=== PATIENT | male | born 1975 | race Caucasian/White ===

== ENCOUNTER → 2018-05-23 08:04 | Outpatient (CLI) | payer OTHER, MEDICAID, SELFPAY ==
[2018-05-23 09:51] LABS: Alanine Aminotransferase 25 IU/L (21-72); Albumin 4.2 g/dL (3.5-5.0); Albumin Globulin Ratio 1.4 (1.0-2.8); Alkaline Phosphatase 93 U/L (38-126); Aspartate Aminotransferase 22 IU/L (17-59); Bilirubin Total 0.9 mg/dL (0.2-1.3); Blood Urea Nitrogen 17 mg/dL (9-20); Calcium 9.3 mg/dL (8.4-10.2); Carbon Dioxide 29 mmol/L (22-32); Chloride 102 mmol/L (98-107); Estimated Glomerular Filt Rate > 60.0 mL/min (>60); Globulin 2.9 g/dL (1.7-4.1); Glucose 98 mg/dL (70-100); HEMOLYSIS < 15 (0-50); Potassium 4.3 mmol/L (3.4-5.1); Sodium 140 mmol/L (137-145); Total Protein 7.1 g/dL (6.3-8.2)
[2018-05-23 09:53] LABS: HEMOLYSIS < 15 (0-50); Iron 117 ug/dL (49-181)
[2018-05-23 09:57] LABS: Luteinizing Hormone < 0.22 mIU/mL; Prolactin 13.1 ng/mL (3.7-17.9)
[2018-05-23 10:05] LABS: Percent Iron Saturation 39 % (20-50); Total Iron Binding Capacity 298 ug/dL (261-462); Transferrin 239 mg/dL (206-381)
[2018-05-23 10:10] LABS: Cortisol AM (Before 10AM) 14.2 ug/dL (4.46-22.7)
[2018-05-23 10:16] LABS: Sodium Urine Random 139 mmol/L (30-90)
[2018-05-24 16:04] LABS: Osmolality, Serum 293 mosm/kg (260-310)
[2018-05-25 15:18] LABS: Chromogranin A, Serum 60 ng/mL (25-140)
== END ==
PROVIDERS: PCP Physician Assistant; Visit Provider Internal Medicine
DX: R35.8 Other polyuria (principal)
CPT/HCPCS: 36415; 80053; 82533; 83002; 83540; 83550; 83930; 83935; 84146; 84300; 84403; 86316

== ENCOUNTER → 2018-06-07 08:37 | Outpatient (CLI) | payer OTHER, MEDICAID, SELFPAY ==
[2018-06-07 12:20] LABS: Cortisol AM (Before 10AM) 10.7 ug/dL (4.46-22.7)
== END ==
PROVIDERS: PCP Student in an Organized Health Care Education/Training Program; Visit Provider Student in an Organized Health Care Education/Training Program
DX: E29.1 Testicular hypofunction (principal)
CPT/HCPCS: 36415; 82533

== ENCOUNTER → 2018-08-25 07:57 | Outpatient (CLI) | payer OTHER, MEDICAID, SELFPAY ==
[2018-08-25 09:14] LABS: Add Manual Diff / Slide Review NO; Eosinophils Percent Auto 6.2 % (2-4); Hematocrit 46.7 % (41-53); Hemoglobin 16.2 g/dL (13.5-17.5); Lymphocytes Percent Auto 29.5 % (25-40); Mean Corpuscular HGB Conc 34.8 % (30-36); Monocytes Percent Auto 10.4 % (3-14); Neutrophils Absolute Auto 2900 /uL (3000-5900); Neutrophils Percent Auto 52.9 % (50-75); Platelet Count 275 X10^3/uL (150-400); Red Blood Cell Count 5.07 X10^6/uL (4.5-5.9); Red Cell Distribution Width 13.1 % (11.6-14.8); White Blood Cell Count 5.5 X10^3/uL (4.5-11.0)
[2018-08-25 09:57] LABS: Prostate Specific Antigen Scrn 1.35 ng/mL (0.1-4.0)
[2018-08-25 10:13] LABS: Free T4, Direct Thyroxine 0.98 ng/dL (0.78-2.19)
[2018-08-25 10:27] LABS: Thyroid Stimulating Hormone 2.01 uIU/mL (0.47-4.68)
[2018-08-27 19:16] LABS: Testosterone, Free 1.44 ng/dL (0.87-5.47)
[2018-08-28 08:14] LABS: Triiodothyronine T3 Total 81 ng/dL (76-181)
== END ==
PROVIDERS: Family Provider Student in an Organized Health Care Education/Training Program; PCP Student in an Organized Health Care Education/Training Program; Visit Provider Internal Medicine
DX: E29.1 Testicular hypofunction (principal); R00.2 Palpitations; Z13.9 Encounter for screening, unspecified
CPT/HCPCS: 36415; 84402; 84403; 84439; 84443; 84480; 85025; G0103

== ENCOUNTER 2021-05-17 19:45 | Emergency (ER) | payer MEDICARE, SELFPAY ==
[2021-05-17 19:56] VITALS: BP 144/106; PULSE 125; RESP 19; TEMP 37.6; O2SAT 97; BMI 25.0
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
[2021-05-17 21:56] VITALS: BP 140/92; PULSE 95; RESP 16; O2SAT 96
== END 2021-05-17 21:58 | disposition home or self-care (01) ==
PROVIDERS: Emergency Provider Emergency Medicine; Family Provider Student in an Organized Health Care Education/Training Program
DX: S43.102A Unspecified dislocation of left acromioclavicular joint, initial encounter (principal); V86.35XA Unspecified occupant of 3- or 4- wheeled all-terrain vehicle (ATV) injured in traffic accident, initial encounter
CPT/HCPCS: 73000; 73030; 99281; 99283

== ENCOUNTER 2024-09-18 12:12 | Emergency (ER) | payer MEDICARE, SELFPAY ==
[2024-09-18] VITALS (10 sets, daily range): BP systolic 136–159; BP diastolic 83–107; PULSE 77–103; RESP 14–23; TEMP 36.9; O2SAT 96–99; BMI 26.6
--- NOTE | 2024-09-18 12:30 | ED_ITS ---
HPI - Nausea/Vomiting/Diarrhea General Chief complaint: Nausea/Vomiting/Diarrhea Stated complaint: disoriented, not eating hx of MS Time Seen by Provider: 09/18/24 12:30 Source: patient and other Mode of arrival: Family Vehicle History of Present Illness HPI Narrative: Patient is a 49-year-old male past medical history of anxiety, depression, comes into the ED from home for evaluation of. States that he has just been feeling off. States that he has been feeling a little bit weaker than normal, also been complaining of abdominal pain nausea vomiting diarrhea ongoing for the past 3 days. Not on any antibiotics. States that he has been compliant with all his other medications which include lithium. States that he is just having generalized body pains worsen his abdomen. No trauma no falls not on any blood thinners no recent illness sick contacts no recent travel Related Data Previous Rx's Medication Instructions Recorded testosterone enanthate 200 mg/mL 200 mg IM QWEEK #4 vials 08/14/17 intramuscular oil cholecalciferol (vitamin D3) 1,250 50,000 unit PO QWEEK #4 caps 12/28/17 mcg (50,000 unit) capsule cyclobenzaprine 10 mg tablet 10 mg PO Q DAY PRN #30 tabs 01/03/18 clindamycin phosphate 1 % topical 1 % topical QDAY #60 mL 01/17/18 solution gabapentin 300 mg capsule 300 mg PO BID #60 caps 01/17/18 (Neurontin) minocycline 100 mg capsule 100 mg PO QDAY #30 caps 01/17/18 (Minocin) benzonatate 100 mg capsule 100 mg PO HSP PRN #30 caps 01/23/18 (Tessalon Perles) amoxicillin 875 mg-potassium 1 tab PO BID 5 days #10 tabs 09/18/24 clavulanate 125 mg tablet cyclobenzaprine 10 mg tablet 10 mg PO BEDTIME PRN muscle spasm 09/18/24 5 days #5 tabs ondansetron 4 mg disintegrating 4 mg PO Q8H PRN nausea and 09/18/24 tablet vomiting 5 days #15 tabs Allergies Allergy/AdvReac Type Severity Reaction Status Date / Time No Known Allergies Allergy Uncoded 09/18/24 12:23 Review of Systems Review of Systems Narrative: General: Positive generalized weakness Denies fever, chills, weight loss HEENT: Denies headache, eye drainage, eye irritation, head trauma, sore throat, voice change Cardiovascular: Denies any chest pain, palpitations, shortness of breath, tachycardia Respiratory: Denies any shortness of breath, cough, wheeze, stridor GI/: Positive abdominal pain, nausea, vomiting, diarrhea, denies bright red blood per rectum, melanotic stools, urinary frequency, urinary retention, dysuria, hematuria MSK: Denies any joint pain, muscle pains, swelling Skin: Denies any rashes, lesions, discoloration Neuro: Denies any headache, lightheadedness, dizziness, fainting, weakness Psych: Denies SI/HI Patient History Surgical History History of third molar tooth extraction Family History Sister Age: 43 Substance abuse Social History Smoking Status: Former smoker Smoking Status: Former smoker alcohol intake frequency: 0-2 drinks per day Substance Use Type: marijuana Exam Narrative Exam Narrative: General: Cooperative, comfortable, well-developed, not in acute distress HEENT: Normocephalic, atraumatic, PERRLA, normal sclera, eyelids normal, Neck: Active full range of motion, atraumatic Chest: Normal to inspection, negative crepitus, no overlying erythema ecchymosis Respiratory: Normal respiratory effort, not in acute respiratory distress, clear to auscultation bilaterally negative cough, wheeze, tachypnea, rhonchi, rales Cardiology: Regular rate rhythm negative gallop, murmur, rubs GI/: Normal to inspection, soft, nonrigid, no tenderness to palpation, exam deferred MSK: Full range of active range of motion of all 4 extremities, atraumatic Skin: No rashes lesions noted Neuro: Alert awake oriented x3, moves all 4 extremities spontaneously, cranial nerves intact, able to answer all questions appropriately follows commands appropriately Psych: Cooperative, negative suicidal or homicidal ideations Initial Vital Signs Initial Vital Signs: Vital Signs Pulse Rate 103 H 09/18/24 12:19 Respiratory Rate 16 09/18/24 12:19 Blood Pressure 159/107 H 09/18/24 12:19 Pulse Oximetry 99 09/18/24 12:19 Course Orders Ordered: ED Orders 09/18/24 12:25 Comprehensive Metabolic Panel Stat Lactate (Lactic Acid) Stat Lipase Stat [place] Stat MAG [Magnesium] Stat Troponin & CK Cardiac Panel Stat 09/18/24 12:28 Complete Blood Count AUTO DIFF Stat EKG-12 Lead Stat 09/18/24 12:35 CT abdomen pelvis w con Stat EKG-12 Lead Stat 09/18/24 12:55 Covid-19 + FLU A/B + RSV - PCR Stat 09/18/24 15:00 Urine Microscopic Stat Ondansetron HCl (Ondansetron 4 Mg/2 Ml Inj) 4 mg IV NOW PRN PRN Reason: Nausea And Vomiting Last Admin: 09/18/24 12:52 Dose: 4 mg Documented By: RHONDA Ondansetron HCl (Ondansetron 4 Mg Odt) 4 mg PO NOW PRN PRN Reason: Nausea And Vomiting Discontinued Medications Amoxicillin/Clavulanate Potassium (Amoxicillin/Clav 875/125 Mg) 1 tab PO NOW ONE Stop: 09/18/24 15:39 Sodium Chloride (Normal Saline 0.9%) 1,000 mls @ 500 mls/hr IV BOLUS ONE Stop: 09/18/24 14:34 Last Infusion: 09/18/24 15:08 Dose: Infused Documented By: Admin: 09/18/24 12:51 Dose: 500 mls/hr Documented By: RHONDA Ketorolac Tromethamine (Ketorolac 30 Mg/Ml Vial) 15 mg IV NOW ONE Stop: 09/18/24 12:36 Last Admin: 09/18/24 12:52 Dose: 15 mg Documented By: RHONDA Morphine Sulfate (Morphine 2 Mg/Ml Inj) 2 mg IV NOW ONE Stop: 09/18/24 14:02 Last Admin: 09/18/24 14:08 Dose: 2 mg Documented By: RHONDA Vital Signs Vital signs: Vital Signs - 8 hr 09/18/24 12:19 09/18/24 12:19 09/18/24 12:24 Temperature 98.5 F Pulse Rate 103 H 101 H Respiratory Rate 16 18 Blood Pressure 159/107 H 159/107 H Pulse Oximetry 99 99 Oxygen Delivery Method Room Air 09/18/24 12:30 09/18/24 12:30 09/18/24 13:00 Temperature Pulse Rate 86 77 Respiratory Rate 14 18 Blood Pressure 145/93 H Pulse Oximetry 96 97 Oxygen Delivery Method 09/18/24 13:00 09/18/24 13:18 09/18/24 13:18 Temperature Pulse Rate 89 Respiratory Rate 15 Blood Pressure 150/100 H 146/88 H Pulse Oximetry 98 Oxygen Delivery Method 09/18/24 13:30 09/18/24 14:00 09/18/24 14:00 Temperature Pulse Rate 79 Respiratory Rate 19 Blood Pressure 137/83 136/90 Pulse Oximetry 98 Oxygen Delivery Method 09/18/24 14:30 09/18/24 14:30 09/18/24 15:00 Temperature Pulse Rate 83 79 Respiratory Rate 23 22 Blood Pressure 136/92 H Pulse Oximetry 98 96 Oxygen Delivery Method 09/18/24 15:00 09/18/24 15:30 09/18/24 15:30 Temperature Pulse Rate 84 Respiratory Rate 15 Blood Pressure 136/92 H 145/98 H Pulse Oximetry 98 Oxygen Delivery Method MDM - Nausea/Vomiting/Diarrhea Differential Diagnosis Differential diagnosis: Likely gastroenteritis, dehydration and other (Urinary tract infection, electrolyte abnormality) Lab Data 09/18/24 12:28 09/18/24 12:25 Labs: Lab Results 09/18/24 09/18/24 09/18/24 Range/Units 12:25 12:28 12:55 WBC 14.2 H (4.5-11.0) X10^3/uL RBC 5.24 (4.5-5.9) X10^6/uL Hgb 16.8 (13.5-17.5) g/dL Hct 49.8 (41-53) % MCV 94.9 (80-100) fL MCH 32.0 (26-34) PG MCHC 33.7 (30-36) % RDW 12.6 (11.6-14.8) % Plt Count 435 H (150-400) X10^3/uL Neut % (Auto) 83.2 H (50-75) % Lymph % (Auto) 9.5 L (25-40) % Harvey % (Auto) 5.4 (3-14) % Eos % (Auto) 1.2 L (2-4) % Baso % (Auto) 0.7 (0-2) % Neut # (Auto) 71937 H (1615-3163) /uL Lymph # (Auto) 1400 (5458-4214) /uL Harvey # (Auto) 800 (0-900) /uL Eos # (Auto) 200 (0-450) /uL Baso # (Auto) 100 (0-100) /uL Sodium 135 L (137-145) mmol/L Potassium 4.1 (3.4-5.1) mmol/L Chloride 103 (98-107) mmol/L Carbon Dioxide 22 (22-32) mmol/L BUN 15 (9-20) mg/dL Creatinine 1.20 (0.66-1.25) mg/dL Estimated GFR > 60 (>60) mL/min BUN/Creatinine Ratio 12.5 (6-22) Glucose 136 H (70-100) mg/dL Lactate 1.5 (0.7-2.1) mmol/L Calcium 9.9 (8.4-10.2) mg/dL Magnesium 2.2 (1.6-2.3) mg/dL Total Bilirubin 0.9 (0.2-1.3) mg/dL AST 31 (17-59) IU/L ALT 25 (<50) IU/L Alkaline Phosphatase 125 (38-126) U/L Total Creatine Kinase 86 (55-170) U/L Troponin I < 0.012 (0.01-0.034) ng/mL Total Protein 8.4 H (6.3-8.2) g/dL Albumin 5.0 (3.5-5.0) g/dL Globulin 3.4 (1.7-4.1) g/dL Albumin/Globulin Ratio 1.5 (1.0-2.8) Lipase 95 (23-300) U/L Urine RBC (0-5/HPF) Urine WBC (0-5/HPF) Ur Squamous Epith Cells (0-5/HPF) Urine Bacteria (None) Ur Culture Indicated? Vol Urine Centrifuged [place] 0.8 (0.6-1.2) mmol/L SARS-CoV-2 (PCR) Negative (Negative) Influenza A (RT-PCR) Flu a negative (NEGATIVE) Influenza B (RT-PCR) Flu b negative (NEGATIVE) RSV (PCR) Negative (Negative) 09/18/24 Range/Units 15:00 WBC (4.5-11.0) X10^3/uL RBC (4.5-5.9) X10^6/uL Hgb (13.5-17.5) g/dL Hct (41-53) % MCV (80-100) fL MCH (26-34) PG MCHC (30-36) % RDW (11.6-14.8) % Plt Count (150-400) X10^3/uL Neut % (Auto) (50-75) % Lymph % (Auto) (25-40) % Harvey % (Auto) (3-14) % Eos % (Auto) (2-4) % Baso % (Auto) (0-2) % Neut # (Auto) (6135-4148) /uL Lymph # (Auto) (9044-4850) /uL Harvey # (Auto) (0-900) /uL Eos # (Auto) (0-450) /uL Baso # (Auto) (0-100) /uL Sodium (137-145) mmol/L Potassium (3.4-5.1) mmol/L Chloride (98-107) mmol/L Carbon Dioxide (22-32) mmol/L BUN (9-20) mg/dL Creatinine (0.66-1.25) mg/dL Estimated GFR (>60) mL/min BUN/Creatinine Ratio (6-22) Glucose (70-100) mg/dL Lactate (0.7-2.1) mmol/L Calcium (8.4-10.2) mg/dL Magnesium (1.6-2.3) mg/dL Total Bilirubin (0.2-1.3) mg/dL AST (17-59) IU/L ALT (<50) IU/L Alkaline Phosphatase (38-126) U/L Total Creatine Kinase (55-170) U/L Troponin I (0.01-0.034) ng/mL Total Protein (6.3-8.2) g/dL Albumin (3.5-5.0) g/dL Globulin (1.7-4.1) g/dL Albumin/Globulin Ratio (1.0-2.8) Lipase (23-300) U/L Urine RBC None seen (0-5/HPF) Urine WBC 0-1/hpf (0-5/HPF) Ur Squamous Epith Cells 0-1 /hpf (0-5/HPF) Urine Bacteria Occasional (0-1) (None) Ur Culture Indicated? Cult not indicated Vol Urine Centrifuged 10ml (spun) [place] (0.6-1.2) mmol/L SARS-CoV-2 (PCR) (Negative) Influenza A (RT-PCR) (NEGATIVE) Influenza B (RT-PCR) (NEGATIVE) RSV (PCR) (Negative) Urine Dip Bedside Urine Glucose Negative Bedside Urine Bilirubin - Negative Bedside Urine Ketone - Negative Urine Specific Clements 1.010 Bedside Urine Occult Blood - Negative Bedside Urine pH 6.0 Bedside Urine Protein - Negative Bedside Urine Urobilinogen - Negative Bedside Urine Nitrite - Negative Bedside Urine Leukocytes +/- [address] scan - abdomen/pelvis: Radiologist's Impression: [address] [address] [address] Scan Report Signed Patient: Paulino Green MR#: [id number] : 1975 Acct:[id number] Age/Sex: 49 / M Date of Service: 09/18/24 Loc: ED Accession Number: [id number] Procedure: CT abdomen pelvis w con Ordering Provider: Dilan Krueger D.O. PROCEDURE: CT ABDOMEN PELVIS W CON INDICATIONS: abd pain, weakness TECHNIQUE: After the administration of intravenous contrast, axial sections acquired from the lung bases to the pubic symphysis. Coronal and sagittal reformats were performed. For radiation dose reduction, the following was used: automated exposure control, adjustment of mA and/or kV according to patient size. COMPARISON: None. FINDINGS: Image quality: Diagnostic. Lower Chest: No significant findings. ABDOMEN: Liver: No solid mass. Gallbladder: No radiopaque gallstones or wall thickening. Biliary ducts: No biliary dilation. Pancreas: No ductal dilation. Spleen: Size is within normal limits. Adrenal Glands: No adrenal nodules. Kidneys and Ureters: No hydronephrosis. No solid mass. No complex renal cystic lesion which requires follow up. Stomach and Bowel: The cecum is high-riding. There are areas of moderate mucosal thickening involving the ascending colon, the distal transverse colon, and the descending colon. There is potential involvement of the sigmoid colon. There is moderate thickening seen involving the rectum. Minimal surrounding inflammatory change can be seen. No dilated loops of small bowel are seen. Peritoneum: No peritoneal abscess is seen. No abnormal intraperitoneal fluid. No free air. Ventral Wall: No significant ventral hernia. Abdominal Nodes: No retroperitoneal or mesenteric adenopathy by size criteria. Vessels: Aorta and inferior vena cava are normal in size. PELVIS: Pelvic Organs: Unremarkable. Bladder: There is moderate generalized bladder wall thickening seen. Pelvic Nodes: No enlarged lymph nodes. Miscellaneous: No inguinal hernias are seen. Bones: No aggressive osseous abnormality. IMPRESSION: Moderate scattered areas of colonic wall thickening can be seen. Please correlate with potential infectious and inflammatory causes of colitis. No findings of perforation or abscess can be seen. Moderate circumferential bladder wall thickening can be seen. Please correlate with bladder outlet obstruction in a patient of this age. ECG Data Attestation: I personally reviewed and interpreted this ECG as follows: Interpretation: EKG interpreted by ED physician sinus at 79 beats per minute QTC [address] changes no STEMI MDM Narrative Medical decision making narrative: Patient is a 49-year-old male history of anxiety, depression, presents for diffuse weakness abdominal pain nausea vomiting diarrhea for the past 3 days. Also complaining of diffuse body pains but worse in his abdomen. Workup performed here in the emergency department with mild leukocytosis and CT scan showing colitis, given patient complaining of abdominal pain will give antibiotics, urine not consistent with acute urinary tract infection. Patient with trop negative, EKG nonischemic, lab work otherwise unremarkable. Patient will be sent home with analgesics, antibiotics and instructed to follow up with primary care in an outpatient setting, strict return precautions were given he verbalized understanding of this and agrees to being discharged home with outpatient follow up Discharge Plan Departure Patient Disposition: Home Clinical Impression: Colitis Activity Restrictions/Additional Instructions: Please follow-up with your primary care doctor Please read the discharge instructions sheet carefully and bring all papers to all doctor follow-up visits, as it may contain information that your doctor may want to see. Disease processes change and evolve, if your symptoms worsen or if you develop any new symptoms that are concerning to you please return for evaluation. Your evaluation today does not show any evidence of any life- threatening/serious illnesses requiring admission to the hospital or surgery. Please follow-up with your doctor for re-evaluation in approximately 1 day. Seek immediate medical attention for any worrisome symptoms. Prescriptions: New amoxicillin-pot clavulanate 875-125 mg tablet 1 tab PO BID 5 Days Qty: 10 0RF ondansetron 4 mg tablet,disintegrating 4 mg PO Q8H PRN (Reason: nausea and vomiting) 5 Days Qty: 15 0RF cyclobenzaprine 10 mg tablet 10 mg PO BEDTIME PRN (Reason: muscle spasm) 5 Days Qty: 5 0RF No Action testosterone enanthate 200 MG/1 ML oil 200 mg IM QWEEK Qty: 4 5RF cholecalciferol (vitamin D3) 50,000 UNIT capsule 50,000 unit PO QWEEK Qty: 4 11RF cyclobenzaprine 10 MG tablet 10 mg PO Q DAY PRNQty: 30 3RF minocycline [Minocin] 100 MG capsule 100 mg PO QDAY Qty: 30 5RF clindamycin phosphate 1 % solution 1 % Topical QDAY Qty: 60 1RF gabapentin [Neurontin] 300 MG capsule 300 mg PO BID Qty: 60 3RF benzonatate [Tessalon Perles] 100 MG capsule 100 mg PO HSP PRNQty: 30 0RF Stand Alone Forms: Patient Portal/API
--- NOTE | 2024-09-18 12:35 | DI.CT.S_ITS ---
PROCEDURE: CT ABDOMEN PELVIS W CON INDICATIONS: abd pain, weakness TECHNIQUE: After the administration of intravenous contrast, axial sections acquired from the lung bases to the pubic symphysis. Coronal and sagittal reformats were performed. For radiation dose reduction, the following was used: automated exposure control, adjustment of mA and/or kV according to patient size. COMPARISON: None. FINDINGS: Image quality: Diagnostic. Lower Chest: No significant findings. ABDOMEN: Liver: No solid mass. Gallbladder: No radiopaque gallstones or wall thickening. Biliary ducts: No biliary dilation. Pancreas: No ductal dilation. Spleen: Size is within normal limits. Adrenal Glands: No adrenal nodules. Kidneys and Ureters: No hydronephrosis. No solid mass. No complex renal cystic lesion which requires follow up. Stomach and Bowel: The cecum is high-riding. There are areas of moderate mucosal thickening involving the ascending colon, the distal transverse colon, and the descending colon. There is potential involvement of the sigmoid colon. There is moderate thickening seen involving the rectum. Minimal surrounding inflammatory change can be seen. No dilated loops of small bowel are seen. Peritoneum: No peritoneal abscess is seen. No abnormal intraperitoneal fluid. No free air. Ventral Wall: No significant ventral hernia. Abdominal Nodes: No retroperitoneal or mesenteric adenopathy by size criteria. Vessels: Aorta and inferior vena cava are normal in size. PELVIS: Pelvic Organs: Unremarkable. Bladder: There is moderate generalized bladder wall thickening seen. Pelvic Nodes: No enlarged lymph nodes. Miscellaneous: No inguinal hernias are seen. Bones: No aggressive osseous abnormality. IMPRESSION: Moderate scattered areas of colonic wall thickening can be seen. Please correlate with potential infectious and inflammatory causes of colitis. No findings of perforation or abscess can be seen. Moderate circumferential bladder wall thickening can be seen. Please correlate with bladder outlet obstruction in a patient of this age. Dictated by: Karl Palacio M.D. on 09/18/2024 at 12:31 Approved by: Karl Palacio M.D. on 09/18/2024 at 12:34
[2024-09-18 12:37] LABS: Add Manual Diff / Slide Review NO; Basophils Absolute Auto 100 /uL (0-100); Basophils Percent Auto 0.7 % (0-2); Eosinophils Absolute Auto 200 /uL (0-450); Eosinophils Percent Auto 1.2 % (2-4); Hematocrit 49.8 % (41-53); Hemoglobin 16.8 g/dL (13.5-17.5); Lymphocytes Absolute Auto 1400 /uL (1100-4500); Lymphocytes Percent Auto 9.5 % (25-40); Mean Corpuscular HGB Conc 33.7 % (30-36); Mean Corpuscular Volume 94.9 fL (80-100); Monocytes Absolute Auto 800 /uL (0-900); Monocytes Percent Auto 5.4 % (3-14); Neutrophils Absolute Auto 11800 /uL (1500-7000); Neutrophils Percent Auto 83.2 % (50-75); Platelet Count 435 X10^3/uL (150-400); Red Blood Cell Count 5.24 X10^6/uL (4.5-5.9); Red Cell Distribution Width 12.6 % (11.6-14.8); White Blood Cell Count 14.2 X10^3/uL (4.5-11.0)
--- NOTE | 2024-09-18 12:47 | EKG_ITS ---
[address] [address] Test Date: 2024-09-18 Pat Name: Paulino Green Department: [facility] Room: Gender: Male [employer]: JEREMY : 1975 Requested By: Order Number: [id number] Reading MD: Erick Herring Measurements Intervals [place] Rate: 79 P: 56 NC: 152 QRS: 18 QRSD: 118 T: 34 QT: 384 QTc: 440 Interpretive Statements Normal sinus rhythm Nonspecific intraventricular conduction delay Electronically Signed On 09-18-2024 14:28:05 PDT by Erick Herring
[2024-09-18] MEDS: SODIUM CHLORIDE 0.9% 1,000 ML 500 ML IV (12:51)
[2024-09-18] MEDS: ONDANSETRON 4 MG/2 ML INJ IV (12:52)
[2024-09-18] MEDS: KETOROLAC 30 MG/ML VIAL 15 MG IV (12:52)
[2024-09-18 13:01] LABS: Alanine Aminotransferase 25 IU/L (<50); Albumin Globulin Ratio 1.5 (1.0-2.8); Alkaline Phosphatase 125 U/L (38-126); Aspartate Aminotransferase 31 IU/L (17-59); BUN Creatinine Ratio 12.5 (6-22); Bilirubin Total 0.9 mg/dL (0.2-1.3); Blood Urea Nitrogen 15 mg/dL (9-20); Calcium 9.9 mg/dL (8.4-10.2); Carbon Dioxide 22 mmol/L (22-32); Chloride 103 mmol/L (98-107); Estimated Glomerular Filt Rate > 60 mL/min (>60); Globulin 3.4 g/dL (1.7-4.1); Glucose 136 mg/dL (70-100); HEMOLYSIS < 15 (0-50); Lipase 95 U/L (23-300); Potassium 4.1 mmol/L (3.4-5.1); Sodium 135 mmol/L (137-145); Total Protein 8.4 g/dL (6.3-8.2)
[2024-09-18 13:02] LABS: Creatine Kinase 86 U/L (55-170); Lactate (Lactic Acid) 1.5 mmol/L (0.7-2.1); Magnesium 2.2 mg/dL (1.6-2.3)
[2024-09-18 13:04] LABS: Lithium 0.8 mmol/L (0.6-1.2)
[2024-09-18 13:13] LABS: Troponin I < 0.012 ng/mL (0.01-0.034)
[2024-09-18 13:34] LABS: Influenza A - CEPHEID Flu A NEGATIVE (NEGATIVE); Influenza B - CEPHEID Flu B NEGATIVE (NEGATIVE); Respiratory Syncytial Virus Negative (Negative)
[2024-09-18 13:38] LABS: COVID-19 CEPHEID 4-PLEX PCR Negative (Negative)
[2024-09-18] MEDS: MORPHINE 2 MG/ML INJ IV (14:08)
[2024-09-18 15:22] LABS: Bacteria Urine Occasional (0-1); Culture Indicated Urine Cult Not Indicated; RBC Urine None Seen (0-5/HPF); Squamous Epithelial Cell Urine 0-1 /HPF (0-5/HPF); Urine Volume 10mL (spun); WBC Urine 0-1/HPF (0-5/HPF)
--- NOTE | 2024-09-18 15:37 | PC.NURSE ---
Girlfriend in hallway multiple times requesting additional pain medications. Patient resting NAD, when asked about pain It did seem better after the medications, maybe getting a little worse Patient remains in position of comfort side lying in bed. Provider at bedside to discuss conclusions of testing. Discussed discharge plan with patient and girlfriend. Patient expresses comfort with plan, girlfriend expresses concerns of managing patient's pain. Reinforced plan with patient and girlfriend.
[2024-09-18] MEDS: AMOXICILLIN/CLAV 875/125 MG 1 TAB PO (15:45)
== END 2024-09-18 15:53 | disposition home or self-care (01) ==
PROVIDERS: Emergency Provider Student in an Organized Health Care Education/Training Program; Family Provider Student in an Organized Health Care Education/Training Program
DX: K52.9 Noninfective gastroenteritis and colitis, unspecified (principal); R10.9 Unspecified abdominal pain; R11.2 Nausea with vomiting, unspecified; Z11.52 Encounter for screening for COVID-19
CPT/HCPCS: 0241U; 36415; 51798; 74177; 80053; 80178; 81003; 81015; 82550; 83605; 83690; 83735; 84484; 85025; 93005; 96361; 96374; 96375; 99284; J1885; J2270; J2405; Q9967

== ENCOUNTER 2024-09-19 09:12 | Emergency (ER) | payer MEDICARE, SELFPAY ==
[2024-09-19] VITALS (11 sets, daily range): BP systolic 131–177; BP diastolic 65–114; PULSE 77–94; RESP 16; TEMP 37; O2SAT 96–99; BMI 26.0
--- NOTE | 2024-09-19 09:43 | ED_ITS ---
HPI - Nausea/Vomiting/Diarrhea General Chief complaint: Nausea/Vomiting/Diarrhea Stated complaint: chills, fever Time Seen by Provider: 09/19/24 09:41 Source: patient and family Mode of arrival: Family Vehicle History of Present Illness HPI Narrative: 49-year-old man with no anxiety and depression presents to the emergency room complaining chills and fever. She was seen yesterday with a complaint of feeling ?off? mild abdominal pain with nausea vomiting and diarrhea for 3 days. Lab work showed mild leukocytosis, normal liver studies, no indication of urinary tract infection, COVID, influenza or RSV the patient was diagnosed with colonic wall thickening possible infectious and inflammatory causes of colitis. he was discharged home with a prescription for amoxicillin and Zofran, states he has been able to take 2 doses of Zofran but continuing to have such that is comfort through his abdomen that he has been unable to sleep. His partner is extraordinarily concerned and so she can continue to take care of him like this. Patient does not appear toxic Related Data Previous Rx's Medication Instructions Recorded testosterone enanthate 200 mg/mL 200 mg IM QWEEK #4 vials 08/14/17 intramuscular oil cholecalciferol (vitamin D3) 1,250 50,000 unit PO QWEEK #4 caps 12/28/17 mcg (50,000 unit) capsule cyclobenzaprine 10 mg tablet 10 mg PO Q DAY PRN #30 tabs 01/03/18 clindamycin phosphate 1 % topical 1 % topical QDAY #60 mL 01/17/18 solution gabapentin 300 mg capsule 300 mg PO BID #60 caps 01/17/18 (Neurontin) minocycline 100 mg capsule 100 mg PO QDAY #30 caps 01/17/18 (Minocin) benzonatate 100 mg capsule 100 mg PO HSP PRN #30 caps 01/23/18 (Tessalon Perles) amoxicillin 875 mg-potassium 1 tab PO BID 5 days #10 tabs 09/18/24 clavulanate 125 mg tablet cyclobenzaprine 10 mg tablet 10 mg PO BEDTIME PRN muscle spasm 09/18/24 5 days #5 tabs ondansetron 4 mg disintegrating 4 mg PO Q8H PRN nausea and 09/18/24 tablet vomiting 5 days #15 tabs promethazine 25 mg tablet 25 mg PO TID PRN nausea and 10/23/24 vomiting #14 tabs quetiapine 300 mg tablet (Seroquel) 300 mg PO BID #14 tabs 09/19/24 Allergies Allergy/AdvReac Type Severity Reaction Status Date / Time No Known Drug Allergies Allergy Verified 09/19/24 09:31 Review of Systems Review of Systems Narrative: Pertinent positive and negative findings as per HPI Patient History Surgical History History of third molar tooth extraction Family History Sister Age: 43 Substance abuse Social History Smoking Status: Current every day smoker Smoking Status: Current every day smoker tobacco type: cigarettes alcohol intake frequency: 0-2 drinks per day Substance Use Type: marijuana Exam Initial Vital Signs Initial Vital Signs: Vital Signs Temperature 98.6 F 09/19/24 09:19 Pulse Rate 94 H 09/19/24 09:19 Respiratory Rate 16 09/19/24 09:19 Blood Pressure 177/114 H 09/19/24 09:19 Pulse Oximetry 99 09/19/24 09:19 Oxygen Delivery Method Room Air 09/19/24 09:19 General: Fatigued appearing, somewhat quiet in no obvious distress, partner supplements the majority of his history HEENT: Dry mucous membranes, normal sclera with reactive pupils, Respiratory: Lungs are clear to auscultation, no wheezing no rales no rhonchi. Full and symmetrical air movement Cardiac: Regular rate and rhythm no murmurs no bruits Abdomen: Soft, nontender, good bowel tones, no flank pain spine: No point tenderness along the thoracic or lumbar spine. No redness or erythema. He does have some minor muscle spasm in the lower thoracic upper lumbar area bilaterally Skin: Warm and dry, no rashes Neurologic: Grossly neurologically intact with no obvious asymmetries or abnormalities Extremities: No trauma, well perfused Psych: Cooperative, appropriate insight and affect Course Orders Ordered: ED Orders 09/19/24 09:29 Complete Blood Count AUTO DIFF Stat Comprehensive Metabolic Panel Stat Lactate (Lactic Acid) Stat Lipase Stat Magnesium Stat 09/19/24 10:17 GI Panel (Film Array) Stat 09/19/24 13:00 Urinalysis and Microscopic Stat Hydromorphone HCl (Hydromorphone 0.5 Mg Inj) 0.5 mg IV Q15MIN PRN PRN Reason: Pain, Last Admin: 09/19/24 11:18 Dose: 0.5 mg Documented By: Admin: 09/19/24 10:29 Dose: 0.5 mg Documented By: HAYDEE Discontinued Medications Sodium Chloride (Normal Saline 0.9%) 1,000 mls @ 1,000 mls/hr IV BOLUS ONE Stop: 09/19/24 11:16 Last Infusion: 09/19/24 11:33 Dose: Infused Documented By: Admin: 09/19/24 10:29 Dose: 1,000 mls/hr Documented By: HAYDEE Ondansetron HCl (Ondansetron 4 Mg/2 Ml Inj) 4 mg IV NOW ONE Stop: 09/19/24 10:18 Last Admin: 09/19/24 10:28 Dose: 4 mg Documented By: HAYDEE Vital Signs Vital signs: Vital Signs - 8 hr 09/19/24 09:19 09/19/24 09:34 09/19/24 10:00 Temperature 98.6 F Pulse Rate 94 H 91 H 87 Respiratory Rate 16 Blood Pressure 177/114 H Pulse Oximetry 99 98 97 Oxygen Delivery Method Room Air 09/19/24 10:00 09/19/24 10:30 09/19/24 10:30 Temperature Pulse Rate 79 Respiratory Rate Blood Pressure 143/94 H 153/96 H Pulse Oximetry 99 Oxygen Delivery Method 09/19/24 11:00 09/19/24 11:00 09/19/24 11:30 Temperature Pulse Rate 86 Respiratory Rate Blood Pressure 147/87 H 147/92 H Pulse Oximetry 99 Oxygen Delivery Method 09/19/24 11:30 09/19/24 12:00 09/19/24 12:00 Temperature Pulse Rate 89 77 Respiratory Rate Blood Pressure 142/79 H Pulse Oximetry 96 96 Oxygen Delivery Method 09/19/24 12:30 09/19/24 12:30 09/19/24 13:00 Temperature Pulse Rate 78 Respiratory Rate Blood Pressure 131/65 Pulse Oximetry 96 96 Oxygen Delivery Method 09/19/24 13:05 09/19/24 13:05 Temperature Pulse Rate 94 H Respiratory Rate Blood Pressure 151/98 H Pulse Oximetry 99 Oxygen Delivery Method MDM - Nausea/Vomiting/Diarrhea Lab Data 09/19/24 09:29 09/19/24 09:29 Labs: Lab Results 09/19/24 09/19/24 Range/Units 09:29 13:00 WBC 14.6 H (4.5-11.0) X10^3/uL RBC 5.14 (4.5-5.9) X10^6/uL Hgb 16.7 (13.5-17.5) g/dL Hct 48.7 (41-53) % MCV 94.6 (80-100) fL MCH 32.5 (26-34) PG MCHC 34.4 (30-36) % RDW 12.6 (11.6-14.8) % Plt Count 452 H (150-400) X10^3/uL Neut % (Auto) 87.6 H (50-75) % Lymph % (Auto) 7.0 L (25-40) % [facility] % (Auto) 4.4 (3-14) % Eos % (Auto) 0.4 L (2-4) % Baso % (Auto) 0.6 (0-2) % Neut # (Auto) 83647 H (8678-5234) /uL Lymph # (Auto) 1000 L (8260-0626) /uL [facility] # (Auto) 600 (0-900) /uL Eos # (Auto) 100 (0-450) /uL Baso # (Auto) 100 (0-100) /uL Sodium 136 L (137-145) mmol/L Potassium 4.6 (3.4-5.1) mmol/L Chloride 104 (98-107) mmol/L Carbon Dioxide 24 (22-32) mmol/L BUN 12 (9-20) mg/dL Creatinine 1.13 (0.66-1.25) mg/dL Estimated GFR > 60 (>60) mL/min BUN/Creatinine Ratio 10.6 (6-22) Glucose 111 H (70-100) mg/dL Lactate 1.6 (0.7-2.1) mmol/L Calcium 10.0 (8.4-10.2) mg/dL Magnesium 2.2 (1.6-2.3) mg/dL Total Bilirubin 0.8 (0.2-1.3) mg/dL AST 29 (17-59) IU/L ALT 23 (<50) IU/L Alkaline Phosphatase 118 (38-126) U/L Total Protein 8.5 H (6.3-8.2) g/dL Albumin 5.0 (3.5-5.0) g/dL Globulin 3.5 (1.7-4.1) g/dL Albumin/Globulin Ratio 1.4 (1.0-2.8) Lipase 124 (23-300) U/L Urine Color Yellow Urine Appearance Clear Urine pH 5.5 (4.5-8.0) Ur Specific [place] 1.015 (1.000-1.035) Urine Protein Negative (Negative) Urine Glucose (UA) Negative (Negative) g/dL Urine Ketones 2+ H (NEGATIVE) Urine Occult Blood Negative (Negative) Urine Nitrate Negative (Negative) Urine Bilirubin Negative (NEGATIVE) Urine Urobilinogen 1.0 (0.2) E.U./dL Ur Leukocyte Esterase Negative (NEGATIVE) Imaging Data CT of the abdomen done 09/18/2024: Radiologist's Impression: PROCEDURE: CT ABDOMEN PELVIS W CON INDICATIONS: abd pain, weakness TECHNIQUE: After the administration of intravenous contrast, axial sections acquired from the lung bases to the pubic symphysis. Coronal and sagittal reformats were performed. For radiation dose reduction, the following was used: automated exposure control, adjustment of mA and/or kV according to patient size. COMPARISON: None. FINDINGS: Image quality: Diagnostic. Lower Chest: No significant findings. ABDOMEN: Liver: No solid mass. Gallbladder: No radiopaque gallstones or wall thickening. Biliary ducts: No biliary dilation. Pancreas: No ductal dilation. Spleen: Size is within normal limits. Adrenal Glands: No adrenal nodules. Kidneys and Ureters: No hydronephrosis. No solid mass. No complex renal cystic lesion which requires follow up. Stomach and Bowel: The cecum is high-riding. There are areas of moderate mucosal thickening involving the ascending colon, the distal transverse colon, and the descending colon. There is potential involvement of the sigmoid colon. There is moderate thickening seen involving the rectum. Minimal surrounding inflammatory change can be seen. No dilated loops of small bowel are seen. Peritoneum: No peritoneal abscess is seen. No abnormal intraperitoneal fluid. No free air. Ventral Wall: No significant ventral hernia. Abdominal Nodes: No retroperitoneal or mesenteric adenopathy by size criteria. Vessels: Aorta and inferior vena cava are normal in size. PELVIS: Pelvic Organs: Unremarkable. Bladder: There is moderate generalized bladder wall thickening seen. Pelvic Nodes: No enlarged lymph nodes. Miscellaneous: No inguinal hernias are seen. Bones: No aggressive osseous abnormality. IMPRESSION: Moderate scattered areas of colonic wall thickening can be seen. Please correlate with potential infectious and inflammatory causes of colitis. No findings of perforation or abscess can be seen. Moderate circumferential bladder wall thickening can be seen. Please correlate with bladder outlet obstruction in a patient of this age. Dictated by: Karl Palacio M.D. on 09/18/2024 at 12:31 MDM Narrative Medical decision making narrative: CC: Continued nausea vomiting and diarrhea Complicating co-morbidities: CT scan done yesterday showed mild that is of colonic wall thickening, started on Augmentin yesterday. Complaining of low back pain that seems to be chronic worse as he has been lying in bed more. Denies IV drug use or addiction history Data collected from: patient, partner Medical records reviewed: Notes and labs from yesterday with thorough workup done are reviewed Differential considered: Infectious diarrhea, viral syndrome, worsening colitis. Possibility of epidural abscess/diskitis is considered but with no fevers, IV drug use and no point tenderness over the spine this felt to be far less likely. Exam documented above, pertinent findings include: Fairly benign exam other than mild fatigue. His abdomen is soft, certainly not surgical. Lab Test results independently reviewed as above. Pertinent findings: CBC shows a white count of 14.6. Parameters are essentially the same as yesterday Metabolic panel shows no changes from yesterday Imaging studies independently reviewed: CT scan yesterday suggested mild colitis Treatments: 1 L of fluid, Zofran Re-evaluations: Patient clinically appears much better after a L of fluid. He is able to drink. He has not been able to provide urine or stool yet. No significant pain behaviors. still remains quite concerned that he is has some ?twitching? and would very much like admitted. Reviewed all of the reassuring lab findings including normal electrolytes, calcium and magnesium Discussion: 49-year-old gentleman who looks remarkably better after a L of fluid and Zofran. He is able to drink fluids difficulty. Abdominal pain is minimal certainly does not have an acute surgical abdomen. No additional workup or hospitalization is required. His is still quite concerned that he is having some ?twitching? that he is unable to sleep and that he is having so much diarrhea. Please note he has now had a 5 hour emergency department stay in his not been able to produce any stool. I reassured her that I felt discharge home was still safe. On further questioning, the patient notes that he is bipolar, he has been staying in his girlfriend's house in [place] rather than at his own where his quetiapine is. He typically takes 300 mg twice a day and has not done so. This is likely contributing to his overall insomnia. He does not feel like he is manic and clinically is not showing signs of jose aside from the insomnia. We will give him a week of quetiapine, Phenergan to supplements Zofran for nausea. Questions are answered and he is safe for discharge Discharge Plan Departure Patient Disposition: Home Clinical Impression: Abdominal pain, vomiting, and diarrhea Insomnia Qualifiers: Insomnia type: unspecified Qualified Code(s): G47.00 - Insomnia, unspecified Instructions: DI for Vomiting -- Adult Activity Restrictions/Additional Instructions: Thank you for coming in today Your labs are reassuring. There was no significant change from yesterday. At this time there was no indication to repeat the CT scan when yesterday showed some mild colitis with no acute surgical findings. Your exam remains consistent with that today You received fluids and Zofran which were somewhat helpful. In your 5 hours in the emergency department you have not had a bowel movement so I suspect the diarrhea is slowing down. You mentioned that you have not had your quetiapine and that is contributing to your insomnia. I have given you a week to use until you are able to get home I have given you a prescription for Phenergan to help with nausea his can be mixed with the Zofran that you already have Prescriptions have been a electronically transmitted to [facility] If you find that you are getting worse or develop any new symptoms, please feel free to return to the emergency department for further evaluation. Prescriptions: New quetiapine [Seroquel] 300 mg tablet 300 mg PO BID Qty: 14 0RF promethazine 25 mg tablet 25 mg PO TID PRN (Reason: nausea and vomiting) Qty: 14 0RF No Action testosterone enanthate 200 MG/1 ML oil 200 mg IM QWEEK Qty: 4 5RF cholecalciferol (vitamin D3) 50,000 UNIT capsule 50,000 unit PO QWEEK Qty: 4 11RF cyclobenzaprine 10 MG tablet 10 mg PO Q DAY PRNQty: 30 3RF minocycline [Minocin] 100 MG capsule 100 mg PO QDAY Qty: 30 5RF clindamycin phosphate 1 % solution 1 % Topical QDAY Qty: 60 1RF gabapentin [Neurontin] 300 MG capsule 300 mg PO BID Qty: 60 3RF benzonatate [Tessalon Perles] 100 MG capsule 100 mg PO HSP PRNQty: 30 0RF amoxicillin-pot clavulanate 875-125 mg tablet 1 tab PO BID 5 Days Qty: 10 0RF ondansetron 4 mg tablet,disintegrating 4 mg PO Q8H PRN (Reason: nausea and vomiting) 5 Days Qty: 15 0RF cyclobenzaprine 10 mg tablet 10 mg PO BEDTIME PRN (Reason: muscle spasm) 5 Days Qty: 5 0RF Stand Alone Forms: Patient Portal/API
[2024-09-19 10:23] LABS: Add Manual Diff / Slide Review NO; Basophils Absolute Auto 100 /uL (0-100); Basophils Percent Auto 0.6 % (0-2); Eosinophils Absolute Auto 100 /uL (0-450); Eosinophils Percent Auto 0.4 % (2-4); Hematocrit 48.7 % (41-53); Hemoglobin 16.7 g/dL (13.5-17.5); Lymphocytes Absolute Auto 1000 /uL (1100-4500); Mean Corpuscular HGB Conc 34.4 % (30-36); Mean Corpuscular Hemoglobin 32.5 PG (26-34); Mean Corpuscular Volume 94.6 fL (80-100); Monocytes Absolute Auto 600 /uL (0-900); Monocytes Percent Auto 4.4 % (3-14); Neutrophils Absolute Auto 12800 /uL (1500-7000); Neutrophils Percent Auto 87.6 % (50-75); Platelet Count 452 X10^3/uL (150-400); Red Blood Cell Count 5.14 X10^6/uL (4.5-5.9); Red Cell Distribution Width 12.6 % (11.6-14.8); White Blood Cell Count 14.6 X10^3/uL (4.5-11.0)
[2024-09-19] MEDS: ONDANSETRON 4 MG/2 ML INJ IV (10:28)
[2024-09-19 10:29] LABS: Alanine Aminotransferase 23 IU/L (<50); Albumin Globulin Ratio 1.4 (1.0-2.8); Alkaline Phosphatase 118 U/L (38-126); Aspartate Aminotransferase 29 IU/L (17-59); BUN Creatinine Ratio 10.6 (6-22); Bilirubin Total 0.8 mg/dL (0.2-1.3); Blood Urea Nitrogen 12 mg/dL (9-20); Carbon Dioxide 24 mmol/L (22-32); Chloride 104 mmol/L (98-107); Estimated Glomerular Filt Rate > 60 mL/min (>60); Globulin 3.5 g/dL (1.7-4.1); Glucose 111 mg/dL (70-100); HEMOLYSIS < 15 (0-50); Lactate (Lactic Acid) 1.6 mmol/L (0.7-2.1); Lipase 124 U/L (23-300); Magnesium 2.2 mg/dL (1.6-2.3); Potassium 4.6 mmol/L (3.4-5.1); Sodium 136 mmol/L (137-145); Total Protein 8.5 g/dL (6.3-8.2)
[2024-09-19] MEDS: SODIUM CHLORIDE 0.9% 1,000 ML 1000 ML IV (10:29)
[2024-09-19] MEDS: HYDROMORPHONE 0.5 MG INJ IV ×2 (10:29→11:18)
--- NOTE | 2024-09-19 12:53 | PC.NURSE ---
Pt given hanna kody and water for oral challenge.
[2024-09-19 13:23] LABS: Appearance Urine UA CLEAR; Bilirubin Urine UA NEGATIVE (NEGATIVE); Color Urine UA YELLOW; Glucose Urine UA NEGATIVE (Negative); Ketones Urine UA 2+ (NEGATIVE); Leukocyte Esterase Urine UA NEGATIVE (NEGATIVE); Nitrite Urine UA NEGATIVE (Negative); Occult Blood Urine UA NEGATIVE (Negative); Protein Urine UA NEGATIVE (Negative); Specific Gravity Urine UA 1.015 (1.000-1.035); pH Urine UA 5.5 (4.5-8.0)
[2024-09-19 13:24] LABS: Urine Volume 10mL (spun)
[2024-09-19 13:32] LABS: Bacteria Urine None Seen; Culture Indicated Urine Cult Not Indicated; RBC Urine None Seen (0-5/HPF); Squamous Epithelial Cell Urine None Seen (0-5/HPF); WBC Urine None Seen (0-5/HPF)
== END 2024-09-19 13:48 | disposition home or self-care (01) ==
PROVIDERS: Emergency Provider Emergency Medicine; Family Provider Student in an Organized Health Care Education/Training Program
DX: R10.9 Unspecified abdominal pain (principal); R11.2 Nausea with vomiting, unspecified; R19.7 Diarrhea, unspecified; G47.00 Insomnia, unspecified
CPT/HCPCS: 36415; 80053; 81001; 83605; 83690; 83735; 85025; 96361; 96374; 96375; 96376; 99284; J1171; J2405